=== PATIENT | male | born 1975 | race Caucasian/White ===

== ENCOUNTER 2023-12-14 20:52 | Emergency (ER) | payer BC, OTHER ==
[2023-12-14 21:13] VITALS: RESP 16; TEMP 97.7; BMI 25.0
[2023-12-14] MEDS ORDERED: ASPIRIN 81 MG CHEWABLE TABLETS ONE (21:16)
[2023-12-14 21:20] LABS: HEMATOCRIT 45.6 % (35.4-49); HEMOGLOBIN 15.1 G/dL (11.7-16.9); MCH 30.3 pg (25.7-33.7); MCHC 33.2 g/dl (32.0-35.9); MEAN CELL VOLUME 91.2 fl (80-96); MEAN PLT VOLUME 7.8 fl (7.5-11.1); PLATELET COUNT 295.8 10^3/uL (134-434); RDW 13.5 % (11.9-15.9); WHITE BLOOD COUNT 9.4 10^3/uL (4.0-10.8)
[2023-12-14 21:24] LABS: INR 1.14 (0.83-1.09)
[2023-12-14 21:27] LABS: ACTIVATED PTT 36.2 SECONDS (25.2-36.5)
[2023-12-14] MEDS: ASPIRIN 81 MG CHEWABLE TABLETS PO ONE (21:29)
[2023-12-14] MEDS ORDERED: METOPROLOL TARTRATE 5 MG/5 ML VIAL ONE (21:33)
[2023-12-14 21:39] LABS: PLATELET ESTIMATE ADEQUATE
[2023-12-14] MEDS: METOPROLOL TARTRATE 5 MG/5 ML VIAL IVPUSH ONE (21:44)
[2023-12-14 21:45] LABS: ALBUMIN 4.2 g/dl (3.4-5.0); ALK PHOS 73 U/L (45-117); ANION GAP 9 mmol/L (4-13); BILIRUBIN,TOTAL 0.4 mg/dl (0.2-1); CALCIUM 9.7 mg/dl (8.5-10.1); CHLORIDE 107 mmol/L (98-107); CO2 24 mmol/L (21-32); GLUCOSE,RANDOM 96 mg/dl (74-106); POTASSIUM 3.9 mmol/L (3.5-5.1); SGOT/AST 15 U/L (15-37); SGPT/ALT 12 U/L (7-52); SODIUM 140 mmol/L (136-145)
[2023-12-14 22:30] VITALS: BP 102/75; PULSE 122
[2023-12-14] MEDS ORDERED: METOPROLOL TARTRATE 25 MG TABLET (FP) ONE ×2 (23:21)
[2023-12-14] MEDS: METOPROLOL TARTRATE 25 MG TABLET (FP) PO ONE (23:32)
== END 2023-12-14 23:42 | disposition left against medical advice (07) ==
LOC: FER 20:52
PROC: 3E033GC Introduction of Other Therapeutic Substance into Peripheral Vein, Percutaneous Approach (ICD-10-PCS; principal; 2023-12-14)
DX: I48.91 Unspecified atrial fibrillation (principal); R06.02 Shortness of breath; R42 Dizziness and giddiness
CPT/HCPCS: 36415; 71045-TC-FY; 80053; 84443; 84484; 85027; 85610; 85730; 93005; 99285-25